=== PATIENT | female | born 1955 | race American Indian/Alaskan Native ===

== ENCOUNTER 2017-10-05 10:17 | Outpatient (CLI) | payer OTHER ==
--- NOTE | 2017-10-05 11:53 | XRay Report ---
Bilateral hands: Bilateral pain. Routine views are obtained. The bones are generally decreased in overall mineralization with no focal finding. There is posterior spurring involving the second through fourth DIP joints of the left hand with mild joint narrowing of the fourth digit. Similar findings may be present in the fourth and fifth PIP joints. Mild spurring is likewise identified in the right DIP joints of the second through fourth digits. No joint space narrowing. The joints of both hands are well aligned. There may be slight swelling of the PIP joints of the second and third right hand as well as the third and fourth PIP joints of the left hand. No associated bone or joint changes however are noted. Impressions: The findings are most consistent with osteoarthritis.
== END 2017-10-05 10:18 | disposition home or self-care (01) ==
LOC: SPVIMAG 10:17
PROVIDERS: ATTEND Orthopaedic Surgery
DX: M79.642 Pain in left hand (principal); M79.641 Pain in right hand

== ENCOUNTER 2017-10-06 11:06 | Outpatient (CLI) | payer OTHER ==
--- NOTE | 2017-10-06 13:18 | XRay Report ---
XRAY LEFT SHOULDER THREE VIEWS: 10/06/17 11:06:00 CLINICAL: Pain FINDINGS: No fracture or dislocation. Normal glenohumeral joint. Moderate AC joint arthritis and mild irregularity at the greater tuberosity of the humerus.. The soft tissues are normal. IMPRESSION: Acromioclavicular joint arthritis and changes at the greater tuberosity suggesting possible rotator cuff disease.
--- NOTE | 2017-10-06 22:30 | XRay Report ---
FINAL REPORT PROCEDURE: Cervical spine. TECHNIQUE: Seven views including flexion and extension. HISTORY: Neck pain. COMPARISON: No prior studies are available for comparison. FINDINGS: The cervical vertebrae have normal height and alignment. There are no fractures. There is no subluxation. There is moderate disc space narrowing at C5-6. There are small vertebral body osteophytes at this level. The neural foramina appear adequately patent. There is normal flexion and extension of the cervical spine. IMPRESSION: Degenerative disc disease at C5-6.
--- NOTE | 2017-10-06 22:34 | XRay Report ---
FINAL REPORT PROCEDURE: Lumbar spine. TECHNIQUE: Seven views including flexion and extension. HISTORY: Lumbar pain. COMPARISON: No prior studies are available for comparison. FINDINGS: The lumbar vertebrae have normal height and alignment. There are no fractures. There is no spondylolisthesis. There is moderate disc space narrowing at L3-4 and L4-5. There are small vertebral body osteophytes at these levels. The sacrum and sacroiliac joints appear normal. There is normal flexion and extension of the lumbar spine. IMPRESSION: Degenerative disc disease at L3-4 and L4-5.
== END 2017-10-06 11:07 | disposition home or self-care (01) ==
LOC: SPVIMAG 11:06
PROVIDERS: ATTEND Physical Medicine & Rehabilitation
DX: M51.36 Other intervertebral disc degeneration, lumbar region (principal); M50.322 Other cervical disc degeneration at C5-C6 level; M19.012 Primary osteoarthritis, left shoulder
CPT/HCPCS: 72052; 72114

== ENCOUNTER 2017-12-20 14:02 | Outpatient (CLI) | payer OTHER ==
--- NOTE | 2017-12-20 19:17 | XRay Report ---
FINAL REPORT EXAM: XR KNEE 1-2V RT HISTORY: KNEE PAIN TECHNIQUE: AP and lateral views of the right knee PRIORS: None. FINDINGS: No acute fracture or dislocation is seen. The soft tissues are unremarkable with no evidence for suprapatellar joint effusion. Joint spaces are maintained and bony mineralization is normal. Vascular calcification posteriorly in the soft tissues are noted. Large spurs are present off the anterior superior patella. Spurring off the medial knee joint is present. IMPRESSION: No acute abnormality of the right knee.
== END 2017-12-20 14:03 | disposition home or self-care (01) ==
LOC: EDBD 14:02 → XRAY 14:02
PROVIDERS: ATTEND Internal Medicine Rheumatology
DX: M25.561 Pain in right knee (principal)